=== PATIENT | female | born 1990 | race Caucasian/White ===

== ENCOUNTER 2017-09-15 15:26 | Emergency (ER) | payer SELFPAY ==
--- NOTE | 2017-09-15 16:16 | Emergency Department Report ---
Chief Complaint: Abdominal Pain Stated Complaint: PREG, CRAMPING Time Seen by Provider: 09/15/17 16:14 - HPI History of Present Illness: Patient here complaining of pelvic cramping, she says she is but she is not sure how many weeks. Last menstrual period was 07/09/2017. She said the cramping in the lower abdomen and its 5 out of 10. Denies any urinary burning frequency or urgency. She states she is having some vaginal bleeding. Denies any fever or chills. - ROS Review of Systems: All systems are negative unless stated in HPI above - Exam Vital Signs: Vital Signs 09/15/17 15:43 Temperature 98.1 F Pulse Rate 78 Respiratory 18 Rate Blood Pressure 116/70 O2 Sat by Pulse 100 Oximetry Physical Exam: Gen.: This is a 27-year-old female well-nourished well-developed in no acute distress. Abdomen: protruding abdomen, mild tenderness to pelvic area. No rigidity. No acute abdomen. Normal bowel sounds in all quadrants. MSE screening note: Focused history and physical exam performed. Due to findings the following was ordered: ED Medical Decision Making - Medical Decision Making MDM: Patient screened by provider in triage area. Appropriate protocol initiated and patient to be seen in main ED by ED Disposition for MSE Condition: Stable Instructions: Abdominal Pain (ED)
[2017-09-15 16:18] LABS: Basophils % (Auto) 0.7 % (0.0-1.8); Eosinophils % (Auto) 5.1 % (0.0-4.3); Hematocrit 38.4 % (30.3-42.9); Hemoglobin 13.1 gm/dl (10.1-14.3); Mean Corpuscular HGB Conc 34 % (30-34); Mean Corpuscular Hemoglobin 32 pg (28-32); Mean Corpuscular Volume 94 fl (79-97); Platelet Count 262 K/mm3 (140-440); Red Blood Count 4.09 M/mm3 (3.65-5.03); Red Cell Distribution Width 12.7 % (13.2-15.2); White Blood Count 10.7 K/mm3 (4.5-11.0)
[2017-09-15 16:31] LABS: Alanine Aminotransferase 66 units/L (7-56); Albumin/Globulin Ratio 1.3 %; Alkaline Phosphatase 45 units/L (35-129); Anion Gap 19 mmol/L; BUN/Creatinine Ratio 20; Blood Urea Nitrogen 8 mg/dL (7-17); Calcium 8.8 mg/dL (8.4-10.2); Carbon Dioxide 21 mmol/L (22-30); Chloride 100.1 mmol/L (98-107); Glucose 181 mg/dL (65-100); Lipase 87 units/L (13-60); Potassium 3.3 mmol/L (3.6-5.0); Sodium 137 mmol/L (137-145); Total Protein 7.1 g/dL (6.3-8.2)
[2017-09-15 17:07] LABS: Bilirubin,Urine NEG (Negative); Blood,Urine NEG (Negative); Ketones,Urine NEG (Negative); Leukocyte Esterase,Urine MOD (Negative); Mucus,Urine FEW /HPF; Nitrite,Urine NEG (Negative); Protein,Urine <15 mg/dL mg/dL (Negative); Urobilinogen,Urine < 2.0 mg/dL (<2.0)
--- NOTE | 2017-09-16 00:08 | Ultrasound Report ---
FINAL REPORT PROCEDURE: US OB TRANSVAGINAL TECHNIQUE: Real-time transvaginal sonography of the uterus, placenta, amniotic fluid, adnexa, and fetus was performed with image documentation. Measurements were obtained to determine age/size. M-mode Doppler was used to document heartbeat. CPT 71166 HISTORY: Vaginal bleeding. COMPARISON: No prior studies are available for comparison. FINDINGS: LMP: 07/18/2017. Clinical age: 8 weeks 3 days. EDC: 04/24/2018. CRL: 2.04 cm, which corresponds to a gestational age of: 8weeks, 5 days. Yolk Sac: Normal. Embryonic Cardiac Activity: 167 beats per minute. Gestational Sac: Normal. Uterus: 8.57 x 6.16 x 27.51 cm. Right Ovary: 2.61 x 1.63 x 2.26 cm. Normal flow. Left Ovary: 2.51 x 1.90 x 2.07 cm. Normal flow. Estimated delivery date: 04/22/2018. Comment: Complete anatomic survey at 18-20 weeks suggested. Small anechoic collection in the cervical os. IMPRESSION: 1. Single living intrauterine gestation at approximately 8 weeks 5 days. 2. EDC by US 04/22/2018. 3. Small anechoic collection in the cervical os, consider clinical correlation.
--- NOTE | 2017-09-16 00:14 | Ultrasound Report ---
FINAL REPORT PROCEDURE: OBSTETRICAL ULTRASOUND LESS THAN 14 WEEKS TECHNIQUE: Real-time transabdominal sonography of the uterus, placenta, amniotic fluid, adnexa, and fetus was performed with image documentation. Measurements were obtained to determine age/size. M-mode Doppler was used to document heartbeat. CPT 26138 HISTORY: Vaginal bleeding. COMPARISON: Transvaginal ultrasound dated same day and time. FINDINGS: LMP: 07/18/2017. Clinical age: 8 weeks 3 days. EDC: 04/24/2018. CRL: 2.04 cm, which corresponds to a gestational age of: 8weeks, 5 days. Yolk Sac: Normal. Embryonic Cardiac Activity: 167 beats per minute. Gestational Sac: Normal. Uterus: 11.6 x 6.2 x 7.4 cm. Right Ovary: 2.6 x 1.4 x 2.3 cm. Normal flow. Left Ovary: 2.7 x 2.1 x 1.8 cm. Normal flow. Estimated delivery date: 04/22/2018. Comment: Complete anatomic survey at 18-20 weeks suggested. Small anechoic collection in the cervical os. IMPRESSION: 1. Single living intrauterine gestation at approximately 8 weeks 5 days. 2. EDC by US 04/22/2018. 3. Small anechoic collection in the cervical os, consider clinical correlation.
[2017-09-16] MEDS ORDERED: MACROBID PO ONE (00:21)
[2017-09-16] MEDS ORDERED: K-DUR PO ONE (00:21)
--- NOTE | 2017-09-16 00:32 | Emergency Department Report ---
HPI - General Chief Complaint: Abdominal Pain Time Seen by Provider: 09/15/17 16:14 - HPI HPI: This is a 27-year-old female presents to the emergency department with complaint of some pelvic cramping and a small amount of vaginal bleeding seen with urination has been going on since yesterday. She is and had a positive home test but is unsure how many weeks the baby would be. With this she is with 3 live children, one miscarriage and one stillborn. She is on vitamins. She has not taken anything for her symptoms prior to presentation. She does not have an RESORT MANAGER. She denies any vaginal discharge, fever, back pain, nausea, vomiting. No recent travel or sick contacts at home. ED Past Medical Hx - Past Medical History Hx Hypertension: No Hx Congestive Heart Failure: No Hx Diabetes: No Hx Deep Vein Thrombosis: No Hx Renal Disease: No Hx Sickle Cell Disease: No Hx Seizures: No Hx Asthma: No Hx COPD: No Hx HIV: No - Social History Smoking Status: Never Smoker Substance Use Type: None - Medications Home Medications: Home Medications Medication Instructions Recorded Confirmed Last Taken Type Nitrofurantoin [place]/M-Cryst 100 mg PO Q12HR #10 capsule 03/25/15 Unknown Rx [Macrobid] metroNIDAZOLE [Flagyl] 500 mg PO BID #14 tablet 03/25/15 Unknown Rx Nitrofurantoin Monohyd/M-Cryst 100 mg PO BID #14 capsule 09/16/17 Unknown Rx [Macrobid 100 mg Capsule] ED Review of Systems ROS: Stated complaint: PREG, CRAMPING Other details as noted in HPI Comment: All other systems reviewed and negative Constitutional: denies: chills, fever Eyes: denies: eye pain, eye discharge, vision change ENT: denies: ear pain, throat pain Respiratory: denies: cough, shortness of breath, wheezing Gastrointestinal: abdominal pain (lower abdominal and/or pelvic cramping). denies: vomiting Genitourinary: other (vaginal bleeding). denies: discharge Musculoskeletal: denies: back pain, joint swelling, arthralgia Skin: denies: rash, lesions Neurological: denies: headache, weakness, paresthesias Physical Exam - Physical Exam Vital Signs: Vital Signs 09/15/17 15:43 Temperature 98.1 F Pulse Rate 78 Respiratory 18 Rate Blood Pressure 116/70 O2 Sat by Pulse 100 Oximetry Physical Exam: GENERAL: The patient is well-developed well-nourished. HENT: Normocephalic. Atraumatic. Patient has moist mucous membranes. EYES: Extraocular motions are intact. Pupils equal reactive to light bilaterally. NECK: Supple. Trachea is midline. CHEST/LUNGS: Clear to auscultation. There is no respiratory distress noted. HEART/CARDIOVASCULAR: Regular. There is no tachycardia. There is no gallop rub or murmur. ABDOMEN: Abdomen is soft, nontender. Patient has normal bowel sounds. There is no abdominal distention. SKIN: Skin is warm and dry. NEURO: The patient is awake, alert, and oriented. The patient is cooperative. The patient has no focal neurologic deficits. The patient has normal speech. MUSCULOSKELETAL: There is no tenderness or deformity. There is no limitation range of motion. There is no evidence of acute injury. ED Course Vital Signs 09/15/17 15:43 Temperature 98.1 F Pulse Rate 78 Respiratory 18 Rate Blood Pressure 116/70 O2 Sat by Pulse 100 Oximetry ED Medical Decision Making - Lab Data Result diagrams: 09/15/17 15:50 09/15/17 15:50 - Radiology Data Radiology results: report reviewed PROCEDURE: US OB TRANSVAGINAL TECHNIQUE: Real-time transvaginal sonography of the uterus, placenta, amniotic fluid, adnexa, and fetus was performed with image documentation. Measurements were obtained to determine age/size. M-mode Doppler was used to document heartbeat. CPT 77707 HISTORY: Vaginal bleeding. COMPARISON: No prior studies are available for comparison. FINDINGS: LMP: 07/18/2017. Clinical age: 8 weeks 3 days. EDC: 04/24/2018. CRL: 2.04 cm, which corresponds to a gestational age of: 8weeks, 5 days. Yolk Sac: Normal. Embryonic Cardiac Activity: 167 beats per minute. Gestational Sac: Normal. Uterus: 8.57 x 6.16 x 27.51 cm. Right Ovary: 2.61 x 1.63 x 2.26 cm. Normal flow. Left Ovary: 2.51 x 1.90 x 2.07 cm. Normal flow. Estimated delivery date: 04/22/2018. Comment: Complete anatomic survey at 18-20 weeks suggested. Small anechoic collection in the cervical os. IMPRESSION: 1. Single living intrauterine gestation at approximately 8 weeks 5 days. 2. EDC by US 04/22/2018. 3. Small anechoic collection in the cervical os, consider clinical correlation. Transcribed By: RAUL Dictated By: DANGELO MCBRIDE MD Electronically Authenticated By: DANGELO MCBRIDE MD Signed Date/Time: 09/15/172005 - Medical Decision Making The patient complains of mild vaginal bleeding, mostly when she urinates, while . There is a mild urinary tract infection. She has a good hormone level and the ultrasound shows a intrauterine at almost 9 weeks. With and vaginal bleeding, the patient will get the diagnosis of miscarriage but we know the fetus is currently alive and intrauterine. The labs otherwise been unremarkable. Lab results and imaging results were discussed with the patient as well as her diagnosis. Vital signs stable throughout her ED course. She appears safe for discharge home at this time. She was given multiple referrals for RESORT MANAGER. She understands return to the emergency department with any increased vaginal bleeding, abdominal or pelvic pain, or any acute distress. - Differential Diagnosis , threatened miscarriage, fibroids, UTI Critical Care Time: No Critical care attestation.: If time is entered above; I have spent that time in minutes in the direct care of this critically ill patient, excluding procedure time. ED Disposition Clinical Impression: Threatened Qualifiers: Weeks of gestation: 8 weeks Qualified Code(s): Z3A.08 - 8 weeks gestation of UTI (urinary tract infection) Qualifiers: Urinary tract infection type: acute cystitis Hematuria presence: with hematuria Qualified Code(s): N30.01 - Acute cystitis with hematuria Disposition: -01 TO HOME OR SELFCARE Is pt being admited?: No Condition: Stable Instructions: Threatened Miscarriage (ED), (ED), Abdominal Pain (ED) Additional Instructions: Please follow up with an RESORT MANAGER in the next few days. Continue with your vitamins. Return to the emergency Department with any worsening of your vaginal bleeding, sharp or severe abdominal or pelvic pains. Worsening of your symptoms, or any acute distress. Take the antibiotics as prescribed. Prescriptions: Nitrofurantoin Monohyd/M-Cryst [Macrobid 100 mg Capsule] 100 mg PO BID #14 capsule Referrals: PRIMARY CAREMD [Primary Care Provider] - 3-5 Days [facility] [Provider Group] - 3-5 Days [facility] [Provider Group] - 3-5 Days [facility] [Provider Group] - 3-5 Days Time of Disposition: 00:31
[2017-09-16 00:54] VITALS: BP 109/63
== END 2017-09-16 00:55 | disposition home or self-care (01) ==
LOC: ED 15:26
DX: O20.0 Threatened abortion (principal); O23.41 Unspecified infection of urinary tract in pregnancy, first trimester; Z3A.09 9 weeks gestation of pregnancy
CPT/HCPCS: 36415; 76801; 76817; 80053; 81001; 83690; 84702; 85025; 86900; 86901; 99284

== ENCOUNTER 2018-02-10 20:16 | Outpatient (CLI) | payer SELFPAY ==
[2018-02-10] MEDS ORDERED: LACTATED RINGERS 1,000 ML ONE (21:43)
[2018-02-10] MEDS ORDERED: LACTATED RINGERS 1,000 ML IV ONE (21:52)
[2018-02-10 23:41] LABS: Bilirubin,Urine NEG (Negative); Blood,Urine NEG (Negative); Color,Urine Yellow (Yellow); Mucus,Urine FEW /HPF; Protein,Urine <15 mg/dL mg/dL (Negative); Urobilinogen,Urine < 2.0 mg/dL (<2.0)
[2018-02-10 23:44] LABS: WBC,Urine < 1.0 /HPF (0.0-6.0)
[2018-02-10] MEDS ORDERED: BRETHINE SUB-Q SCH (23:45)
[2018-02-11 03:59] VITALS: BP 114/69
== END 2018-02-11 02:05 | disposition home or self-care (01) ==
LOC: TRG 20:16
PROVIDERS: ATTEND Obstetrics & Gynecology
DX: O26.893 Other specified pregnancy related conditions, third trimester (principal); Z3A.29 29 weeks gestation of pregnancy
CPT/HCPCS: 81001; 82962; 96360; 96361; 96369; J3105; J7120

== ENCOUNTER 2018-03-14 22:38 | Outpatient (CLI) | payer OTHER ==
[2018-03-14 23:23] VITALS: BP 131/63
[2018-03-15 00:33] LABS: Bilirubin,Urine NEG (Negative); Blood,Urine NEG (Negative); Color,Urine Yellow (Yellow); Mucus,Urine FEW /HPF; Protein,Urine <15 mg/dL mg/dL (Negative); Urobilinogen,Urine < 2.0 mg/dL (<2.0)
[2018-03-15] MEDS ORDERED: VISTARIL PO ONE ×2 (02:04→03:00)
== END 2018-03-15 02:46 | disposition home or self-care (01) ==
LOC: TRG 22:38
PROVIDERS: ATTEND Obstetrics & Gynecology
DX: O47.03 False labor before 37 completed weeks of gestation, third trimester (principal); Z3A.34 34 weeks gestation of pregnancy
CPT/HCPCS: 59025; 81001; Q0177

== ENCOUNTER 2018-04-13 23:01 | Outpatient (CLI) | payer OTHER ==
[2018-04-13 23:17] VITALS: BP 107/63
== END 2018-04-14 01:45 | disposition home or self-care (01) ==
LOC: TRG 23:01
PROVIDERS: ATTEND Obstetrics & Gynecology
DX: O47.1 False labor at or after 37 completed weeks of gestation (principal); Z3A.39 39 weeks gestation of pregnancy
CPT/HCPCS: 59025; 82962

== ENCOUNTER 2022-02-20 20:11 | Emergency (ER) | payer SELFPAY ==
[2022-02-21 02:22] LABS: Basophils % (Auto) 0.5 % (0.0-1.8); Eosinophils # (Auto) 0.4 K/mm3 (0.0-0.4); Eosinophils % (Auto) 4.3 % (0.0-4.3); Hematocrit 40.3 % (30.3-42.9); Hemoglobin 13.4 gm/dl (10.1-14.3); Lymphocytes # (Auto) 1.5 K/mm3 (1.2-5.4); Lymphocytes % (Auto) 18.8 % (13.4-35.0); Mean Corpuscular HGB Conc 33 % (30-34); Mean Corpuscular Volume 94 fl (79-97); Monocytes # (Auto) 0.6 K/mm3 (0.0-0.8); Monocytes % (Auto) 7.2 % (0.0-7.3); Platelet Count 277 K/mm3 (140-440); Red Blood Count 4.26 M/mm3 (3.65-5.03); Red Cell Distribution Width 13.1 % (13.2-15.2)
[2022-02-21 02:34] LABS: Alanine Aminotransferase 59 units/L (7-56); Albumin 4.4 g/dL (3.9-5); Blood Urea Nitrogen 6 mg/dL (7-17); Hemolysis Index 4
[2022-02-21 02:47] LABS: Bilirubin,Urine NEG (Negative); Blood,Urine NEG (Negative); Color,Urine Yellow (Yellow); Mucus,Urine FEW /HPF; Protein,Urine <15 mg/dL mg/dL (Negative); Urobilinogen,Urine < 2.0 mg/dL (<2.0)
[2022-02-21 03:06] LABS: BUN/Creatinine Ratio 12; Bilirubin,Direct < 0.2 mg/dL (0-0.2)
--- NOTE | 2022-02-21 04:41 | Ultrasound Report ---
ULTRASOUND OBSTETRIC INDICATION: with pelvic pain. TECHNIQUE: Transabdominal and Transvaginal. COMPARISON: No relevant prior imaging study available. FINDINGS: GESTATIONAL SAC: None seen. YOLK SAC: None seen. EMBRYO/FETUS: None seen. ADNEXA: No significant abnormality. FREE FLUID: None. ADDITIONAL FINDINGS: None. IMPRESSION: 1. No sonographic visualization of an intrauterine or ectopic . 2. No acute findings in the pelvis. Signer Name: Jasbir Ambrose MD Signed: 02/21/2022 4:37 AM Workstation Name: [id number]
--- NOTE | 2022-02-21 05:17 | Emergency Department Report ---
ED General Adult HPI - General Chief complaint: Abdominal Pain Stated complaint: CRAMPS/NAUSEA Time Seen by Provider: 02/21/22 01:10 Source: patient Mode of arrival: Ambulatory Limitations: No Limitations - History of Present Illness Initial comments: 31-year-old female [place] emerged department complaining day and has a history of suprapubic pelvic cramping pain of unknown etiology she took a test yesterday and discovered was positive so scheduling department seeking further evaluation and treatment option. She reports no vaginal bleeding, no vaginal discharge, no hematuria, no dysuria, no fever, chills, sweats., No flank pain Quality: aching, dull Consistency: constant Improves with: none Worsens with: none Associated Symptoms: denies: chest pain, cough, malaise, nausea/vomiting, syncope, weakness - Related Data Home Medications Medication Instructions Recorded Confirmed Last Taken No Known Home Medications [No 02/11/18 04/16/18 Unknown Reported Home Medications] Allergies Allergy/AdvReac Type Severity Reaction Status Date / Time No Known Allergies Allergy Verified 02/20/22 20:47 ED Review of Systems ROS: Stated complaint: CRAMPS/NAUSEA Other details as noted in HPI Comment: All other systems reviewed and negative ED Past Medical Hx - Past Medical History Previous Medical History?: No Hx Hypertension: No Hx Congestive Heart Failure: No Hx Diabetes: No Hx Deep Vein Thrombosis: No Hx Renal Disease: No Hx Sickle Cell Disease: No Hx Seizures: No Hx Asthma: No Hx COPD: No Hx HIV: No - Surgical History Past Surgical History?: No - Social History Smoking Status: Never Smoker Substance Use Type: None - Medications Home Medications: Home Medications Medication Instructions Recorded Confirmed Last Taken Type No Known Home Medications [No 02/11/18 04/16/18 Unknown History Reported Home Medications] ED Physical Exam - General Limitations: No Limitations - GI/Abdominal GI/Abdominal exam: Present: soft, tenderness (Suprapubic tenderness with palpation.) ED Course Vital Signs 02/20/22 20:43 Temperature 98.5 F Pulse Rate 80 Respiratory 18 Rate Blood Pressure 110/58 [Left] O2 Sat by Pulse 100 Oximetry ED Medical Decision Making - Lab Data Result diagrams: 02/21/22 01:51 02/21/22 01:51 Lab Results 02/21/22 02/21/22 02/21/22 Range/Units 01:51 01:51 01:51 WBC 8.1 (4.5-11.0) K/mm3 RBC 4.26 (3.65-5.03) M/mm3 Hgb 13.4 (10.1-14.3) gm/dl Hct 40.3 (30.3-42.9) % MCV 94 (79-97) fl MCH 31 (28-32) pg MCHC 33 (30-34) % RDW 13.1 L (13.2-15.2) % Plt Count 277 (140-440) K/mm3 Lymph % (Auto) 18.8 (13.4-35.0) % Centre % (Auto) 7.2 (0.0-7.3) % Eos % (Auto) 4.3 (0.0-4.3) % Baso % (Auto) 0.5 (0.0-1.8) % Lymph # (Auto) 1.5 (1.2-5.4) K/mm3 Centre # (Auto) 0.6 (0.0-0.8) K/mm3 Eos # (Auto) 0.4 (0.0-0.4) K/mm3 Baso # (Auto) 0.0 (0.0-0.1) K/mm3 Seg Neutrophils % 69.2 (40.0-70.0) % Seg Neutrophils # 5.6 (1.8-7.7) K/mm3 Sodium 136 L (137-145) mmol/L Potassium 3.9 (3.6-5.0) mmol/L Chloride 100.0 (98-107) mmol/L Carbon Dioxide 23 (22-30) mmol/L Anion Gap 17 mmol/L BUN 6 L (7-17) mg/dL Creatinine 0.5 L (0.6-1.2) mg/dL Estimated GFR > 60 ml/min BUN/Creatinine Ratio 12 % Glucose 157 H (65-100) mg/dL Calcium 9.0 (8.4-10.2) mg/dL Total Bilirubin 0.30 (0.1-1.2) mg/dL Direct Bilirubin < 0.2 (0-0.2) mg/dL Indirect Bilirubin 0.1 mg/dL AST 25 (5-40) units/L ALT 59 H (7-56) units/L Alkaline Phosphatase 65 (35-129) units/L Total Protein 6.7 (6.3-8.2) g/dL Albumin 4.4 (3.9-5) g/dL Albumin/Globulin Ratio 1.9 % Lipase 42 (13-60) units/L HCG, Quant 919.5 H (0-4) mIU/mL Urine Color (Yellow) Urine Turbidity (Clear) Urine pH (5.0-7.0) Ur Specific [place] (1.003-1.030) Urine Protein (Negative) mg/dL Urine Glucose (UA) (Negative) mg/dL Urine Ketones (Negative) mg/dL Urine Blood (Negative) Urine Nitrite (Negative) Urine Bilirubin (Negative) Urine Urobilinogen (<2.0) mg/dL Ur Leukocyte Esterase (Negative) Urine WBC (Auto) (0.0-6.0) /HPF Urine RBC (Auto) (0.0-6.0) /HPF U Epithel Cells (Auto) (0-13.0) /HPF Urine Mucus /HPF / Range/Units 01:52 WBC (4.5-11.0) K/mm3 RBC (3.65-5.03) M/mm3 Hgb (10.1-14.3) gm/dl Hct (30.3-42.9) % MCV (79-97) fl MCH (28-32) pg MCHC (30-34) % RDW (13.2-15.2) % Plt Count (140-440) K/mm3 Lymph % (Auto) (13.4-35.0) % Centre % (Auto) (0.0-7.3) % Eos % (Auto) (0.0-4.3) % Baso % (Auto) (0.0-1.8) % Lymph # (Auto) (1.2-5.4) K/mm3 Centre # (Auto) (0.0-0.8) K/mm3 Eos # (Auto) (0.0-0.4) K/mm3 Baso # (Auto) (0.0-0.1) K/mm3 Seg Neutrophils % (40.0-70.0) % Seg Neutrophils # (1.8-7.7) K/mm3 Sodium (137-145) mmol/L Potassium (3.6-5.0) mmol/L Chloride (98-107) mmol/L Carbon Dioxide (22-30) mmol/L Anion Gap mmol/L BUN (7-17) mg/dL Creatinine (0.6-1.2) mg/dL Estimated GFR ml/min BUN/Creatinine Ratio % Glucose (65-100) mg/dL Calcium (8.4-10.2) mg/dL Total Bilirubin (0.1-1.2) mg/dL Direct Bilirubin (0-0.2) mg/dL Indirect Bilirubin mg/dL AST (5-40) units/L ALT (7-56) units/L Alkaline Phosphatase (35-129) units/L Total Protein (6.3-8.2) g/dL Albumin (3.9-5) g/dL Albumin/Globulin Ratio % Lipase (13-60) units/L HCG, Quant (0-4) mIU/mL Urine Color Yellow (Yellow) Urine Turbidity Clear (Clear) Urine pH 5.0 (5.0-7.0) Ur Specific [place] 1.015 (1.003-1.030) Urine Protein <15 mg/dl (Negative) mg/dL Urine Glucose (UA) Neg (Negative) mg/dL Urine Ketones Neg (Negative) mg/dL Urine Blood Neg (Negative) Urine Nitrite Neg (Negative) Urine Bilirubin Neg (Negative) Urine Urobilinogen < 2.0 (<2.0) mg/dL Ur Leukocyte Esterase Sm (Negative) Urine WBC (Auto) 5.0 (0.0-6.0) /HPF Urine RBC (Auto) 2.0 (0.0-6.0) /HPF U Epithel Cells (Auto) 7.0 (0-13.0) /HPF Urine Mucus Few /HPF - Radiology Data Radiology results: report reviewed [facility] [address] [place] [address] Ultrasound Report Signed Patient: JERICA BAE MR#: [id number] : 1990 Acct:[id number] Age/Sex: 31 / F ADM Date: 02/20/22 Loc: ED Attending Dr: Ordering Physician: AMY NESBITT Date of Service: 02/21/22 Procedure(s): US OB <= 14 weeks fetus Accession Number(s): [id number] cc: AMY NESBITT ULTRASOUND OBSTETRIC INDICATION: with pelvic pain. TECHNIQUE: Transabdominal and Transvaginal. COMPARISON: No relevant prior imaging study available. FINDINGS: GESTATIONAL SAC: None seen. YOLK SAC: None seen. EMBRYO/FETUS: None seen. ADNEXA: No significant abnormality. FREE FLUID: None. ADDITIONAL FINDINGS: None. IMPRESSION: 1. No sonographic visualization of an intrauterine or ectopic . 2. No acute findings in the pelvis. Signer Name: Jasbir Ambrose MD Signed: 02/21/2022 4:37 AM Workstation Name: [id number] Transcribed By: [place] Dictated By: Jasbir Ambrose MD Electronically Authenticated By: Jasbir Ambrose MD Signed Date/Time: 02/21/22436 DD/ 5 TD/TT: Print Cancel - Medical Decision Making 31-year-old female discovering presents emerged from with pelvic pain. Labs do support however the scan shows no evidence of any intrauterine or ectopic. This point is most likely too early to determine ultrasound. Outpatient follow-up with an [facility]OKIE ENGINEER and reevaluate in the next few weeks Critical care attestation.: If time is entered above; I have spent that time in minutes in the direct care of this critically ill patient, excluding procedure time. ED Disposition Clinical Impression: Pelvic pain during Disposition: 01 HOME / SELF CARE / HOMELESS Is pt being admited?: No Does the pt Need Aspirin: No Condition: Stable Instructions: Abdominal Pain (ED), Pelvic Pain, Female Additional Instructions: You have been evaluated emergency department today for abdominal pain/pelvic. Your evaluation did not show evidence of any medical conditions requiring emergent intervention at this time. Your hCG was elevated at 919 points which does indicate a . At this present time is too early to determine any significant issues on on ultrasound. Ultrasound was also obtained and did not reveal any ectopic . It is too early this point to evaluate for intrauterine please be sure to follow-up with the LOKIE ENGINEER in 2 to 3 weeks for reevaluation. Please schedule an appointment with your primary care physician. Return to emergency department if you experience worsening uncontrolled pain, fevers of 100.4 or greater, recurrent vomiting, inability to tolerate food or fluids by mouth, bloody stools or vomit, black tarry stools, or any other concerning symptoms. Referrals: RADHA MCKENNA MD [Primary Care Provider] - 3-5 Days [facility] [Provider Group] - 3-5 Days
[2022-02-21 05:28] VITALS: BP 114/63
== END 2022-02-21 05:28 | disposition home or self-care (01) ==
LOC: ED 20:11
DX: O26.891 Other specified pregnancy related conditions, first trimester (principal); R10.2 Pelvic and perineal pain; Z3A.00 Weeks of gestation of pregnancy not specified
CPT/HCPCS: 36415; 76801; 76817; 80048; 80076; 81001; 83690; 84702; 85025; 99284

== ENCOUNTER 2022-06-11 21:44 | Outpatient (CLI) | payer SELFPAY ==
[2022-06-11 22:16] VITALS: BP 111/52
[2022-06-11 23:08] LABS: WBC,Urine < 1.0 /HPF (0.0-6.0)
[2022-06-11 23:11] LABS: Color,Urine Colorless (Yellow)
[2022-06-11 23:12] LABS: RBC,Urine < 1.0 /HPF (0.0-6.0)
[2022-06-11 23:31] LABS: Basophils # (Auto) 0.1 K/mm3 (0.0-0.1); Basophils % (Auto) 0.7 % (0.0-1.8); Eosinophils # (Auto) 0.9 K/mm3 (0.0-0.4); Eosinophils % (Auto) 11.9 % (0.0-4.3); Hematocrit 34.7 % (30.3-42.9); Hemoglobin 12.1 gm/dl (10.1-14.3); Lymphocytes # (Auto) 1.1 K/mm3 (1.2-5.4); Lymphocytes % (Auto) 13.4 % (13.4-35.0); Mean Corpuscular HGB Conc 35 % (30-34); Mean Corpuscular Volume 93 fl (79-97); Monocytes # (Auto) 0.9 K/mm3 (0.0-0.8); Monocytes % (Auto) 11.2 % (0.0-7.3); Platelet Count 220 K/mm3 (140-440); Red Blood Count 3.71 M/mm3 (3.65-5.03); Red Cell Distribution Width 12.5 % (13.2-15.2)
--- NOTE | 2022-06-12 00:19 | Ultrasound Report ---
OB ultrasound Limited INDICATION: Increased pelvic pressure FINDINGS: The cervix is closed. There is layering debris within the region of the internal os. Cervic al length is 4.3 cm. IMPRESSION: On limited examination of the cervical length is 4.3 cm. Signer Name: Francisco Nash MD Signed: 06/12/2022 12:14 AM Workstation Name: [id number]
[2022-06-12 00:33] LABS: Alanine Aminotransferase 59 units/L (7-56); Albumin 3.7 g/dL (3.9-5); Blood Urea Nitrogen 5 mg/dL (7-17); Hemolysis Index 58
[2022-06-12 00:34] LABS: BUN/Creatinine Ratio 17
[2022-06-12] MEDS ORDERED: FAMOTIDINE 20 MG TAB PO ONE (00:40)
== END 2022-06-12 00:47 | disposition home or self-care (01) ==
LOC: TRG 21:44 → APU 21:46 → TRG 06-12 00:47
PROVIDERS: ATTEND Obstetrics & Gynecology
DX: O26.892 Other specified pregnancy related conditions, second trimester (principal); R10.9 Unspecified abdominal pain; Z3A.19 19 weeks gestation of pregnancy
CPT/HCPCS: 36415; 76817; 80053; 81001; 85025